=== PATIENT | female | born 1975 | race Caucasian/White ===

== ENCOUNTER 2025-05-09 22:37 | Emergency (ER) | payer OTHER, SELFPAY ==
[2025-05-09 22:46] VITALS: BP 147/81; PULSE 79; RESP 14; TEMP 36.3; O2SAT 97; BMI 22.1
--- NOTE | 2025-05-09 23:30 | ED.EYEPROB ---
HPI - Eye Problem General Chief complaint: Eye Problems Stated complaint: chemical in left eye Time Seen by Provider: 05/09/25 23:22 History of Present Illness HPI Narrative: This 50-year-old female was cleaning with some cleaning solution that had bleach in it. She sprayed this solution and a small amount of it bounced back and contacted her left eye. She did not have immediate pain but notice some discomfort and then decided to flush her eyes with water over the course of about 20 minutes repeatedly. This happened about 9 hours prior to arrival. She does report little bit of discomfort in her left eye but does not have any visual changes. Related Data Allergies Allergy/AdvReac Type Severity Reaction Status Date / Time No Known Drug Allergies Allergy Verified 05/09/25 22:50 Review of Systems Status of ROS: Reports: 10 or more systems reviewed and unremarkable except as noted in History and below Narrative: Constitutional: No fevers, no weight gain or loss. Eyes: No discharge. No vision changes. Chemical exposure as described above. HENT: No congestion, no sore throat, no ear pain. Cardiovascular: No chest pain, no palpitations. Respiratory: No shortness of breath, no wheezes, no cough. Gastrointestinal: No abdominal pain, no vomiting, no diarrhea. Genitourinary: No dysuria, no hematuria. Musculoskeletal: Normal range of motion. Skin: No rashes, no pruritis. Neurological: No dizziness, weakness, sensory change, speech change. Endo/Heme/Allergies: No bruising or bleeding. No polydipsia. Pysch: no suicidality, no anxiety, no insomnia. All other systems reviewed and are negative. Exam Narrative: Exam Narrative: Constitutional: Well-developed, well-nourished, no acute distress. HEENT: Normocephalic, atraumatic. The patient's left eye is examined under magnification. There is no significant erythema or excessive tearing currently. There is no sign of foreign object. Neck: Normal range of motion. Nontender. Supple. Heart: Intact distal pulses. Lungs: No chest discomfort. No wheezes, rhonchi, or rales. Abdomen: Nontender. Back: Normal range of motion. Extremities: Normal range of motion. No injury. Skin: Intact. No rash. Warm. No erythema or pallor. Neurologic: No altered sensation. No weakness. Alert and oriented. Psychiatric: No suicidality. No anxiety or depression. No insomnia. Nursing notes and vitals signs are reviewed. Const: Vital Signs, click to edit/add: Vital Signs - 24 hr 05/09/25 22:46 Temperature 97.4 F L Pulse Rate [Right Pulse Oximeter] 79 Respiratory Rate 14 Blood Pressure [Ri ght Upper Arm] 147/81 H Pulse Oximetry 97 Oxygen Delivery Me thod Room Air Course Vital Signs Vital signs: Initial Vital Signs Temperature 97.4 F L 05/09/25 22:46 Temperature Source Temporal Artery Scan 05/09/25 22:46 Pulse Rate 79 05/09/25 22:46 Pulse Rhythm Regular 05/09/25 22:46 Pulse Strength 3+ Normal 05/09/25 22:46 Respiratory Rate 14 05/09/25 22:46 Blood Pressure 147/81 H 05/09/25 22:46 Blood Pressure Mean 103 05/09/25 22:46 Blood Pressure Position Sitting 05/09/25 22:46 Pulse Oximetry 97 05/09/25 22:46 Oxygen Delivery Method Room Air 05/09/25 22:46 Vital Signs Temperature 97.4 F L 05/09/25 22:46 Pulse Rate 79 05/09/25 22:46 Respiratory Rate 14 05/09/25 22:46 Blood Pressure 147/81 H 05/09/25 22:46 Pulse Oximetry 97 05/09/25 22:46 Oxygen Delivery Method Room Air 05/09/25 22:46 Temperature 97.4 F L 05/09/25 22:46 Pulse Rate 79 05/09/25 22:46 Respiratory Rate 14 05/09/25 22:46 Blood Pressure 147/81 H 05/09/25 22:46 Pulse Oximetry 97 05/09/25 22:46 Oxygen Delivery Method Room Air 05/09/25 22:46 MDM - Eye Problem MDM Narrative Medical decision making narrative: This patient had an exposure to a cleaning chemical that occurred about 9 hours prior to arrival. She did the right thing by irrigating immediately afterwards and did so with water over the course of about 20 minutes. She has some mild discomfort currently but no visual changes and her exam is normal. I gave reassurance is to her and did provide from the eye kit a prescription for flurbiprofen. Discharge Plan Discharge Clinical Impression: Chemical exposure of eye Patient Disposition: Home, Self-Care Condition: Improved Additional Instructions: Use medication as needed and directed. Activity as tolerated. Follow up with MD return if worsening. Stand Alone Forms: [employer] Instructions
== END 2025-05-10 00:01 | disposition home or self-care (01) ==
LOC: ED 23:52
PROVIDERS: Emergency Provider Emergency Medicine Emergency Medical Services
DX: H10.212 Acute toxic conjunctivitis, left eye (principal); Z77.098 Contact with and (suspected) exposure to other hazardous, chiefly nonmedicinal, chemicals
CPT/HCPCS: 99283; 99284; A9270

== ENCOUNTER 2025-06-12 10:06 | Emergency (ER) | payer SELFPAY ==
[2025-06-12 10:21] VITALS: BP 114/75; PULSE 86; RESP 16; TEMP 36.6; O2SAT 99; BMI 20.5
--- NOTE | 2025-06-12 10:45 | ED_ITS ---
HPI - General Adult General Time Seen by Provider: 10:45 Date Seen: 06/12/25 Chief complaint: Animal Bite Stated complaint: possible bat bite Time Seen by Provider: 06/12/25 10:38 Source: patient Mode of arrival: ambulatory Limitations: no limitations History of Present Illness HPI narrative: Cheryl is a 50-year-old female who presents emergency department via private car and significant other with possible animal bite. Related Data Home Medications ?Medication ?Instructions ?Recorded ?Confirmed doxycycline monohydrate 40 mg 40 mg PO DAILY 06/12/25 06/12/25 capsule,immediate - delay release (Oracea) ivermectin 1 % topical cream applic topical DAILY 05/31 12/22 Allergies Allergy/AdvReac Type Severity Reaction Status Date / Time No Known Drug Allergies Allergy Verified 05/09/25 22:50 PFSH PFS Social History Smoking Status: Never smoker Do you use any of these nicotine containing products: None Second hand tobacco smoke exposure: No How often do you have a drink containing alcohol: monthly or less AUDIT-C Alcohol total score: 1 Non-prescribed substance use: denies use Exam Const: Vital Signs, click to edit/add: Vital Signs - 24 hr 06/12/25 10:21 Temperature 98 F Pulse Rate [Pulse Oximeter] 86 Respiratory Rate 16 Blood Pressure [Ri ght Upper Arm] 114/75 Pulse Oximetry 99 Oxygen Delivery Me thod Room Air Course Vital Signs Vital signs: Initial Vital Signs Temperature 98 F 06/12/25 10:21 Temperature Source Temporal Artery Scan 06/12/25 10:21 Pulse Rate 86 06/12/25 10:21 Respiratory Rate 16 06/12/25 10:21 Blood Pressure 114/75 06/12/25 10:21 Blood Pressure Mean 88 06/12/25 10:21 Blood Pressure Position Sitting 06/12/25 10:21 Pulse Oximetry 99 06/12/25 10:21 Oxygen Delivery Method Room Air 06/12/25 10:21 Vital Signs Temperature 98 F 06/12/25 10:21 Pulse Rate 86 06/12/25 10:21 Respiratory Rate 16 06/12/25 10:21 Blood Pressure 114/75 06/12/25 10:21 Pulse Oximetry 99 06/12/25 10:21 Oxygen Delivery Method Room Air 06/12/25 10:21 Temperature 98 F 06/12/25 10:21 Pulse Rate 86 06/12/25 10:21 Respiratory Rate 16 06/12/25 10:21 Blood Pressure 114/75 06/12/25 10:21 Pulse Oximetry 99 06/12/25 10:21 Oxygen Delivery Method Room Air 06/12/25 10:21 Discharge Plan Discharge Clinical Impression: Bite by animal Patient Disposition: Home, Self-Care Condition: Stable Additional Instructions: [facility] [address] [place] [address] Lab hours M-F 8a - 4:30p You can bring the bat and or alive. Prescriptions: No Action ivermectin 1 % cream topical DAILY doxycycline monohydrate [Oracea] 40 mg capsule,IR - delay rel,biphase 40 mg PO DAILY Follow Up/Referrals: Provider,Not a Local [Primary Care Provider, Family Practice] Stand Alone Forms: [employer] Instructions
--- NOTE | 2025-06-12 11:24 | ED.ANIMALBIT ---
HPI - Animal Bite General Date Seen: 06/12/25 Chief Complaint: Animal Bite Stated Complaint: possible bat bite Time Seen by Provider: 06/12/25 10:38 Source: patient Mode of arrival: ambulatory Limitations: no limitations History of Present Illness HPI narrative: Patient is a 50 year old female presenting to emergency department concerned about of bat in the room. States the patient's believes he saw the bat into the room around to a.m.. She cannot say for sure though. The bat was by ambulance captured alive by a professional. The bat is now in a Tupperware container and they plan to bring it to the [facility] on Saturday for testing when they are able to. She is unsure if she needs to be vaccinated for rabies or if she can wait. Not aware of any bites. Related Data Home Medications ?Medication ?Instructions ?Recorded ?Confirmed doxycycline monohydrate 40 mg 40 mg PO DAILY 06/12/25 06/12/25 capsule,immediate - delay release (Oracea) ivermectin 1 % topical cream applic topical DAILY 06/12/25 Allergies Allergy/AdvReac Type Severity Reaction Status Date / Time No Known Drug Allergies Allergy Verified 05/09/25 22:50 Review of Systems Narrative: Pertinent systems reviewed and were negative unless stated in HPI PFSH PFSH Social History Smoking Status: Never smoker Do you use any of these nicotine containing products: None Second hand tobacco smoke exposure: No How often do you have a drink containing alcohol: monthly or less AUDIT-C Alcohol total score: 1 Non-prescribed substance use: denies use Exam Narrative: Exam Narrative: Const: Well-nourished, Well-developed, in no distress Eyes: no conjunctival injection, and symmetrical lids HENT: Atraumatic external nose and ears. Moist mucous membranes. MSK:Extremities w/o deformity, Normal Active ROM Skin: Warm, Dry. No rashes or lesions. Neuro: Normal Muscle tone, No focal neurological deficits. Psych: Awake, Alert, & Oriented x3. Appropriate mood and affect. Const: Vital Signs, click to edit/add: Vital Signs - 24 hr 06/12/25 10:21 Temperature 98 F Pulse Rate [Pulse Oximeter] 86 Respiratory Rate 16 Blood Pressure [Ri ght Upper Arm] 114/75 Pulse Oximetry 99 Oxygen Delivery Me thod Room Air Course Vital Signs Vital signs: Initial Vital Signs Temperature 98 F 06/12/25 10:21 Temperature Source Temporal Artery Scan 06/12/25 10:21 Pulse Rate 86 06/12/25 10:21 Respiratory Rate 16 06/12/25 10:21 Blood Pressure 114/75 06/12/25 10:21 Blood Pressure Mean 88 06/12/25 10:21 Blood Pressure Position Sitting 06/12/25 10:21 Pulse Oximetry 99 06/12/25 10:21 Oxygen Delivery Method Room Air 06/12/25 10:21 Vital Signs Temperature 98 F 06/12/25 10:21 Pulse Rate 86 06/12/25 10:21 Respiratory Rate 16 06/12/25 10:21 Blood Pressure 114/75 06/12/25 10:21 Pulse Oximetry 99 06/12/25 10:21 Oxygen Delivery Method Room Air 06/12/25 10:21 Temperature 98 F 06/12/25 10:21 Pulse Rate 86 06/12/25 10:21 Respiratory Rate 16 06/12/25 10:21 Blood Pressure 114/75 06/12/25 10:21 Pulse Oximetry 99 06/12/25 10:21 Oxygen Delivery Method Room Air 06/12/25 10:21 MDM - Animal Bite MDM Narrative Medical decision making narrative: Patient is a 50-year-old female presenting for concerns of a possible bat bite. They have caught the bat. We spoke to MD who recommends holding off on vaccination and stating they can bring the bat in on Saturday. No further workup is necessary Discharge Plan Discharge Clinical Impression: Bite by animal Patient Disposition: Home, Self-Care Condition: Stable Additional Instructions: [facility] [address] [facility] [phone] Lab hours M-F 8a - 4:30p You can bring the bat and or alive. Prescriptions: No Action ivermectin 1 % cream topical DAILY doxycycline monohydrate [Oracea] 40 mg capsule,IR - delay rel,biphase 40 mg PO DAILY Follow Up/Referrals: Provider,Not a Local [Primary Care Provider, Family Practice] Stand Alone Forms: [employer] Info Instructions
== END 2025-06-12 11:42 | disposition home or self-care (01) ==
LOC: ED 11:41
PROVIDERS: Emergency Provider Student in an Organized Health Care Education/Training Program
DX: Z20.3 Contact with and (suspected) exposure to rabies (principal)
CPT/HCPCS: 99281; 99282